=== PATIENT | male | born 1985 | race Caucasian/White ===

== ENCOUNTER 2016-08-26 15:55 | Emergency (ER) | payer SELFPAY ==
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
[2016-08-26] MEDS ORDERED: IBUPROFEN 800 MG TABLET PO ONE (17:47)
[2016-08-26 20:21] VITALS: BP 120/70
--- NOTE | 2016-08-28 08:34 | XCELERA REPORT ---
[address] [address] Lower Extremity Venous Evaluation Name: CINDY BALL Age: 30 yrs Gender: Male : 1985 Patient Status: Emergency Patient Location: ER Study Date: 08/26/2016 06:54 PM Procedure: Color flow and duplex imaging of the veins of the left lower extremity as well as the right Common Femoral vein. Reason For Study: left leg swelling and pain Ordering Physician: MADAN DAVENPORT Performed By: Earl Hook Right Sided Venous Evaluation The right common femoral vein is fully compressible. Spontaneous and phasic flow is present in the right common femoral vein. Left Sided Venous Evaluation Normal vessel filling wall to wall, compression and augmentation as well as Colour flow down to the infrageniculate veins. 5 x 1 cms hematoma in subcutaneous calf area. Critical Findings Called in to YURIDIA Davenport. Interpretation Summary No duplex evidence of DVT or obstruction in the left lower extremity nor in the right Common Femoral vein. A sizable subcutaneous hematoma, 5 x 1 cms noted on posterior calf. Likely evident on physical exam. : MADAN DAVENPORT > Narendra Bailey
== END 2016-08-26 20:22 | disposition home or self-care (01) ==
LOC: ER 15:55
DX: S80.12XA Contusion of left lower leg, initial encounter (principal); M79.605 Pain in left leg; M79.89 Other specified soft tissue disorders; W29.8XXA Contact with other powered hand tools and household machinery, initial encounter
CPT/HCPCS: 93971; 99283